=== PATIENT | female | born 1970 | race Caucasian/White ===

== ENCOUNTER → 2016-11-04 | Outpatient (CLI) | payer OTHER ==
[~2016-11-04] MED LIST: ASHW1CAP PO; BCPILLS PO; CLON1TAB3 PO; DOXY-300 PO; FLUT0.15 NAE; MELA1TAB9 PO; ONDA4TAB46 PO; SPIR50TA2 PO; THYR300T PO; THYR90TA PO
== END | disposition home or self-care (01) ==
LOC: C.LABBFT 11:24
PROVIDERS: ATTEND Internal Medicine Endocrinology, Diabetes & Metabolism
DX: E03.9 Hypothyroidism, unspecified (principal)

== ENCOUNTER → 2017-01-08 | Outpatient (CLI) | payer OTHER ==
[2017-01-08 17:47] LABS: THYROID STIMULATING HORMONE 1.19 uIu/ml (0.300-4.500)
== END | disposition home or self-care (01) ==
LOC: C.LABBFT 15:04
PROVIDERS: ATTEND Internal Medicine Endocrinology, Diabetes & Metabolism
DX: E03.9 Hypothyroidism, unspecified (principal)

== ENCOUNTER 2017-04-20 09:36 | Emergency (ER) | payer OTHER ==
[~2017-04-20 09:36] MED LIST changes: -ASHW1CAP PO; -DOXY-300 PO; -MELA1TAB9 PO; -ONDA4TAB46 PO; -SPIR50TA2 PO; -THYR300T PO
[2017-04-20 09:44] VITALS: TEMP 36.5; Ht 162.6 cm
[2017-04-20] MEDS ORDERED: ONDANSETRON INJ 2 MG/ML 2 ML VIAL IV STA (10:06)
[2017-04-20] MEDS ORDERED: MECLIZINE HCL 25 MG TAB PO STA (10:06)
[2017-04-20] MEDS ORDERED: SODIUM CHLORIDE 0.9% 1000ML 1,000 ML IV ONE ×2 (10:15→11:45)
[2017-04-20 10:40] LABS: BASO % 0.3 %; BASO ABS # 0.02 K/uL (0-0.2); COMPLETE YES; EOS % 0.1 %; HEMATOCRIT 38.1 % (37-47); IG% 0.1 %; LYMPH % 9.9 %; LYMPH ABS # 0.72 K/uL (1.2-3.4); MEAN CELL VOLUME 88.8 fL (80-100); MEAN CORPUSCULAR HEMOGLOBIN 30.8 pg (25-34); MEAN CORPUSCULAR HGB CONC 34.6 g/dl (32-36); MEAN PLATELET VOLUME 10.2 fL (7.4-10.4); MONO % 3.6 %; PLATELET COUNT 239 K/uL (130-400); RED BLOOD COUNT 4.29 M/uL (4.2-5.4); WHITE BLOOD COUNT 7.27 K/uL (4.8-10.8)
[2017-04-20] MEDS ORDERED: ASHW1CAP PO (10:53)
[2017-04-20] MEDS ORDERED: MELA1TAB9 PO (10:53)
[2017-04-20] MEDS ORDERED: THYR300T PO (10:53)
[2017-04-20] MEDS ORDERED: DOXY-300 PO (10:53)
[2017-04-20] MEDS ORDERED: SPIR50TA2 PO (10:53)
[2017-04-20 10:55] LABS: ALT/SGPT 17 U/L (12-78); AST/SGOT 10 U/L (15-37); BLOOD UREA NITROGEN 13 mg/dl (7-18); BUN/CREATININE RATIO 22.9 (10-20); CALCIUM 8.4 mg/dl (8.5-10.1); CARBON DIOXIDE 26 mmol/L (21-32); CHLORIDE 108 mmol/L (98-107); CREATININE 0.55 mg/dl (0.60-1.20); GLUCOSE 114 mg/dl (70-99); POTASSIUM 3.9 mmol/L (3.5-5.1); SODIUM 138 mmol/L (136-145)
[2017-04-20 10:58] LABS: ALKALINE PHOSPHATASE 61 U/L (45-117)
[2017-04-20 13:37] LABS: URINE APPEARANCE CLEAR (CLEAR); URINE BILIRUBIN NEG (NEG); URINE COLOR YELLOW; URINE NITRITE NEG (NEG); URINE PH 8.5 (4.5-7.5); URINE SPECIFIC GRAVITY 1.011 (1.000-1.030); UROBILINOGEN NEG (NEG)
[2017-04-20 13:41] LABS: MANUAL MICROSCOPIC REQUIRED? NO; REVIEW REQ? NO
[2017-04-20] MEDS ORDERED: RANITIDINE HCL 50 MG/100 ML D5W IV STA (14:11)
[2017-04-20 14:41] LABS: MAGNESIUM 1.8 mg/dl (1.8-2.4); PHOSPHORUS 1.7 mg/dl (2.5-4.9)
[2017-04-20] MEDS ORDERED: POTASSIUM PHOSPHATE INJ 15 MMOL in SODIUM CHLORIDE 0.9% 250ML 250 ML IV ONE (15:00)
[2017-04-20] MEDS ORDERED: MAGNESIUM SULFATE 1GM / D5W 1 GM IV ONE (15:00)
[2017-04-20] MEDS ORDERED: ONDA4TAB46 PO (17:23)
[2017-04-20] MEDS ORDERED: ONDANSETRON HOME PACK 4MG OD TAB PO ONE (17:30)
[2017-04-20 19:02] VITALS: BP 115/72; PULSE 88; O2SAT 98
--- NOTE | 2017-04-21 00:34 | Medical Consult ---
Consultation Date of Consultation: Apr 21, 2017. Attending Physician: Lindy Daniels, DO Reason for Consultation: dizziness and low phos; ?admit to hospital History of Present Illness 46 yo F with a long history of orthostatic hypotension and vertigo presents to the ER after waking up from sleep the night before feeling dizzy. She states she had a hard time moving and changing position without feeling nautious and ultimately dry heaved continuously. She reports feeling totally fine the day before. She denies fevers, chills or headaches. She has a h/o migraine headaches but hasn't had these in years. She denies visual changes, facial droop, slurred speech, difficulty moving arms/legs. She did have some trouble balancing because of the dizziness, and was measured to have orthostatic hypotension on vitals. She received two units of IVF and felt better with subsequent resolution of her symptoms and resolution of orthostasis. She reports the positional low BP in the past and denies passing out. She states that she has a family history of "dizziness." She is low risk for stroke-- nonsmoker, active, young. She denies diarrhea, joint or muscles aches or any other symptoms at this time. She was foudn to have a low phos at 1.7 and IV replacement was given. She is also using black pepper extract as an OTC medication and uses 120mg daily of [place] thyroid. Past Medical/Surgical History Medical Problems: (1) Acne Status: Chronic (2) Anxiety Status: Chronic (3) Anxiety State Nos Status: Chronic (4) H/O vertigo Status: Chronic (5) Head Injury, Nos Status: Resolved (6) Hypothyroid Status: Chronic (7) Hypothyroidism Nos Status: Chronic (8) Insomnia, Unspecified Status: Chronic Family History FH: leukemia MOTHER ( at 55 yo) Social History Smoking Status: Never Smoker Smokeless Tobacco Use: No Marital Status: Housing Status: lives with family Occupation Status: employed Allergies Coded Allergies: No Known Allergies (Unverified , 04/21/15) Home Medications Active Zofran (Ondansetron HCl) 4 Mg Tab 4 Mg PO Q6H PRN Reported Melatonin (Melatonin-Pyridoxine) 1 Tab Tab 1 Tab PO HS Ashwagandha (Ashwagandha (Withana Somnfera)) Unknown Strength Cap 1,300 Mg PO DAILY FOR THYROID SUPPORT Aldactone (Spironolactone) 50 Mg Tab 50 Mg PO DAILY Gwen Thyroid (Thyroid) 120 Mg Tab 120 Mg PO DAILY Doxycycline (Doxycycline (Monohydrate)) 100 Mg Cap 100 Mg PO BID Tretinoin 0.025% qHS [id number] PO qHS melatonin 10mg PO qHS Ibuprofen PRN Meclizine PRN Review of Systems At least ten systems were reviewed and negative except as indicated in HPI Physical Exam Date Time Temp Pulse Resp B/P (MAP) Pulse Ox O2 Delivery O2 Flow Rate FiO2 04/20/17 19:02 88 16 115/72 98 04/20/17 17:06 98 18 94/64 98 Room Air 04/20/17 16:56 94 16 121/72 98 Room Air 98 92/66 88 109/78 04/20/17 15:02 96 04/20/17 14:44 88 16 93/51 04/20/17 14:01 99 99/53 113 109/77 113 106/71 04/20/17 13:05 94 16 114/77 100 Room Air 04/20/17 12:38 92 16 109/75 99 Room Air 04/20/17 11:21 81 16 114/77 100 Room Air 04/20/17 11:21 81 16 79/48 98 Room Air 87 114/77 97 59/46 04/20/17 09:44 36.5 88 18 109/74 97 Room Air GEN: WNWD, in no acute distress, alert and appropriate, ambulatory HEENT: NC/AT, PERRL, normal sclerae, MMM, pharynx nonacute, TM pearly without effusion or erythema NECK: no LAD, trachea midline CARDIO: reg rate, S1/2 heard without m/g/r LUNGS: CTA bilaterally, no crackles, rales or wheezes, good diaphragmatic excursion ABD: soft, non-tender, non-distended, no rebound or guarding, +BS EXTREMITY: RP and DP palpable 2+ bilat, no LE swelling or edema, extremities are warm and well-perfused NEURO: CN 2-12 intact, sensation intact throughout, coordination intact (finger to nose, Hakeem, heel to pham while standing), (reflexes) BR 2/4 bilat, knee 2/4 bilat, Romberg negative. MUSC: 5/5 strength throughout, no focal deficits SKIN: warm and dry Laboratory Results 04/20/17 10:20 Red Blood Count 4.29, Mean Corpuscular Volume 88.8, Mean Corpuscular Hemoglobin 30.8, Mean Corpuscular Hemoglobin Concent 34.6, Mean Platelet Volume 10.2, Neutrophils (%) (Auto) 86.0, Lymphocytes (%) (Auto) 9.9, Monocytes (%) (Auto) 3.6, Eosinophils (%) (Auto) 0.1, Basophils (%) (Auto) 0.3, Neutrophils # (Auto) 6.25, Lymphocytes # (Auto) 0.72, Monocytes # (Auto) 0.26, Eosinophils # (Auto) 0.01, Basophils # (Auto) 0.02 04/20/17 10:20 Test 04/20/17 10:20 04/20/17 13:00 White Blood Count 7.27 K/uL (4.8-10.8) Red Blood Count 4.29 M/uL (4.2-5.4) Hemoglobin 13.2 g/dL (12.0-16.0) Hematocrit 38.1 % (37-47) Mean Corpuscular Volume 88.8 fL (80-100) Mean Corpuscular Hemoglobin 30.8 pg (25-34) Mean Corpuscular Hemoglobin Concent 34.6 g/dl (32-36) Platelet Count 239 K/uL (130-400) Mean Platelet Volume 10.2 fL (7.4-10.4) Neutrophils (%) (Auto) 86.0 % Lymphocytes (%) (Auto) 9.9 % Monocytes (%) (Auto) 3.6 % Eosinophils (%) (Auto) 0.1 % Basophils (%) (Auto) 0.3 % Neutrophils # (Auto) 6.25 K/uL (1.4-6.5) Lymphocytes # (Auto) 0.72 K/uL (1.2-3.4) Monocytes # (Auto) 0.26 K/uL (0.11-0.59) Eosinophils # (Auto) 0.01 K/uL (0-0.5) Basophils # (Auto) 0.02 K/uL (0-0.2) RDW Standard Deviation 38.7 fL (36.4-46.3) RDW Coefficient of Variation 12.0 % (11.5-14.5) Immature Granulocyte % (Auto) 0.1 % Immature Granulocyte # (Auto) 0.01 K/uL (0.00-0.02) Anion Gap 4.0 mmol/L (3-11) Estimated GFR () 131.3 Estimated GFR (Non- 113.3 BUN/Creatinine Ratio 22.9 (10-20) Calcium Level 8.4 mg/dl (8.5-10.1) Phosphorus Level 1.7 mg/dl (2.5-4.9) Magnesium Level 1.8 mg/dl (1.8-2.4) Total Bilirubin 1.0 mg/dl (0.2-1) Direct Bilirubin 0.1 mg/dl (0-0.2) Aspartate Amino Transf (AST/SGOT) 10 U/L (15-37) Alanine Aminotransferase (ALT/SGPT) 17 U/L (12-78) Alkaline Phosphatase 61 U/L (45-117) Troponin I < 0.015 ng/ml (0-0.045) Total Protein 7.0 gm/dl (6.4-8.2) Albumin 3.5 gm/dl (3.4-5.0) Urine Color YELLOW Urine Appearance CLEAR (CLEAR) Urine pH 8.5 (4.5-7.5) Urine Specific [place] 1.011 (1.000-1.030) Urine Protein NEG (NEG) Urine Glucose (UA) NEG (NEG) Urine Ketones NEG (NEG) Urine Occult Blood NEG (NEG) Urine Nitrite NEG (NEG) Urine Bilirubin NEG (NEG) Urine Urobilinogen NEG (NEG) Urine Leukocyte Esterase NEG (NEG) Urine Test NEG (NEG) Last 24 Hours Test 04/20/17 10:20 04/20/17 13:00 White Blood Count 7.27 K/uL Red Blood Count 4.29 M/uL Hemoglobin 13.2 g/dL Hematocrit 38.1 % Mean Corpuscular Volume 88.8 fL Mean Corpuscular Hemoglobin 30.8 pg Mean Corpuscular Hemoglobin Concent 34.6 g/dl Platelet Count 239 K/uL Mean Platelet Volume 10.2 fL Neutrophils (%) (Auto) 86.0 % Lymphocytes (%) (Auto) 9.9 % Monocytes (%) (Auto) 3.6 % Eosinophils (%) (Auto) 0.1 % Basophils (%) (Auto) 0.3 % Neutrophils # (Auto) 6.25 K/uL Lymphocytes # (Auto) 0.72 K/uL Monocytes # (Auto) 0.26 K/uL Eosinophils # (Auto) 0.01 K/uL Basophils # (Auto) 0.02 K/uL RDW Standard Deviation 38.7 fL RDW Coefficient of Variation 12.0 % Immature Granulocyte % (Auto) 0.1 % Immature Granulocyte # (Auto) 0.01 K/uL Sodium Level 138 mmol/L Potassium Level 3.9 mmol/L Chloride Level 108 mmol/L Carbon Dioxide Level 26 mmol/L Anion Gap 4.0 mmol/L Blood Urea Nitrogen 13 mg/dl Creatinine 0.55 mg/dl Estimated GFR () 131.3 Estimated GFR (Non- 113.3 BUN/Creatinine Ratio 22.9 Random Glucose 114 mg/dl Calcium Level 8.4 mg/dl Phosphorus Level 1.7 mg/dl Magnesium Level 1.8 mg/dl Total Bilirubin 1.0 mg/dl Direct Bilirubin 0.1 mg/dl Aspartate Amino Transf (AST/SGOT) 10 U/L Alanine Aminotransferase (ALT/SGPT) 17 U/L Alkaline Phosphatase 61 U/L Troponin I < 0.015 ng/ml Total Protein 7.0 gm/dl Albumin 3.5 gm/dl Urine Color YELLOW Urine Appearance CLEAR Urine pH 8.5 Urine Specific [place] 1.011 Urine Protein NEG Urine Glucose (UA) NEG Urine Ketones NEG Urine Occult Blood NEG Urine Nitrite NEG Urine Bilirubin NEG Urine Urobilinogen NEG Urine Leukocyte Esterase NEG Urine Test NEG Assessment & Plan 46 yo F presents with acute vertigo in the setting of orthostatic hypotension with symptoms and orthostattic hypotension resolving after IVF given in the ER. Stroke is low risk and as this has been chronic, her symptoms have resolved, and she has no neuro deficits or nystagmus on exam this was considered a low possibility. Her phos was replaced IV but otherwise her electrolytes were found to be within normal limits. She was sent home with antiemetics as needed and close follow-u with her PCP for of next week. We had a long conversation about what she wanted to do. We extensively weighed out the pros and cons of being admitted or not. I gave her the choice and ultimately she decided on her own that she would like to go home and she would be fine there. She was discharged from the ER in stable condition with recommendations to further investigate this recurring orthostatic hypotension as an outpatient. Lnidy Daniels DO [facility] Additional Copies To Tylor Velázquez M.D.
--- NOTE | 2017-04-21 16:50 | EMERGENCY ROOM VISIT NOTE ---
ED Visit Note First contact with patient: 09:47 Chief Complaint: I'm having dizziness and dry heaving. History of Present Illness: Ms. Dumont is a 46-year-old white female who is brought into the ED via wheelchair complaining of dizziness and nausea. Historically patient reports she had a history that was diagnosed as vertigo couple years ago. She reports she was on antivertigo medicine and her symptoms resolve and no cause for her vertigo was identified. Patient reports approximately 3 hours ago she was awoken from sleep with an acute onset of diaphoresis and when she stood up out of bed she was having dizziness with room spinning sensations. She then became nauseated and went to the bathroom to vomit. When she got in the bathroom she was having dry heaving and worsening dizziness and lied on the floor; she denies peg syncope. Currently she is complaining of dizziness; sensations of room spinning, and nausea. Her symptoms worsen with head movement to the left. She has not identified any alleviating factors related to her symptoms. She has not taken any medications for her symptoms prior to arrival at the hospital. She denies any recent head trauma, visual changes, hearing changes, difficult speaking, difficulty swallowing, difficulty ambulating/coronary body movements, upper respiratory tract symptoms, cough, wheezing, shortness of breath, chest pain, palpitations, neck/back pain, abdominal pain, recent rectal bleeding, black/ tarry stools, urinary symptoms, hematuria, vaginal bleeding, vaginal discharge, extremity weakness/numbness/tingling, skin eruptions, skin color changes. Review of Systems: As noted above in history of present illness. All body systems were reviewed and found to be negative as noted above. Past Medical History: As previously noted, bronchitis, pneumonia, hypothyroidism , status post tonsillectomy. Current Medications: Doxycycline, Aldactone, melatonin, thyroid, Ashwagandha. Allergies to Medications: Patient denies. Social History: Patient is currently employed; she feels safe in her home environment; she denies tobacco use and admits to alcohol use. Physical Examination: Vital Signs: Date Time Temp Pulse Resp B/P (MAP) Pulse Ox O2 Delivery O2 Flow Rate FiO2 04/20/17 19:02 88 16 115/72 98 04/20/17 17:06 98 18 94/64 98 Room Air 04/20/17 16:56 94 16 121/72 98 Room Air 98 92/66 88 109/78 04/20/17 15:02 96 04/20/17 14:44 88 16 93/51 04/20/17 14:01 99 99/53 113 109/77 113 106/71 04/20/17 13:05 94 16 114/77 100 Room Air 04/20/17 12:38 92 16 109/75 99 Room Air 04/20/17 11:21 81 16 114/77 100 Room Air 04/20/17 11:21 81 16 79/48 98 Room Air 87 114/77 97 59/46 04/20/17 09:44 36.5 88 18 109/74 97 Room Air GENERAL: 46-year-old female in moderate distress due to symptoms, nontoxic- appearing, afebrile and hemodynamically stable. NEUROLOGICAL: Awake, alert and oriented to person, place and time. Answering questions appropriately and following commands. Normal gait. Good hand eye coordination. Cranial nerves II through XII grossly intact. Good short-term and long-term recall. HEENT: Atraumatic and normocephalic. External ears are nontender. Auditory canals are pink and patent. Tympanic membranes are normal with normal light reflex; no erythema or bulging. PERRLA. EOMI without nystagmus. Sclera white and conjunctiva pink. No drainage from naris. Oral cavity moist and pink. Pharynx is nonerythematous or edematous. Speech normal. No lymphadenopathy. Trachea midline. No jugular venous distention. BACK: No tenderness over the bony spine. No meningismus or nuchal rigidity. No CVA tenderness. THORAX: Lungs sounds are clear to auscultation and equal bilaterally with symmetrical chest wall. No wheezing, rales or rhonchi. No crepitus, tenderness , subcutaneous air or deformities noted. HEART: Regular rate and rhythm. No gallops, rubs or murmurs are appreciated. ABDOMEN: Flat, soft and nontender. Positive bowel sounds in all quadrants. No guarding, rigidity or organomegaly. EXTREMITIES: Moves all extremities well on command and with purpose. All distal neurovascular statuses are intact and equal bilaterally. No calf tenderness or cords. ED Course: Patient is assessed as noted above. Patient's medication list was reviewed. Laboratory Testing: Test 04/20/17 10:20 04/20/17 13:00 Range/Units White Blood Count 7.27 4.8-10.8 K/uL Red Blood Count 4.29 4.2-5.4 M/uL Hemoglobin 13.2 12.0-16.0 g/dL Hematocrit 38.1 37-47 % Mean Corpuscular Volume 88.8 80-100 fL Mean Corpuscular Hemoglobin 30.8 25-34 pg Mean Corpuscular Hemoglobin Concent 34.6 32-36 g/dl Platelet Count 239 130-400 K/uL Mean Platelet Volume 10.2 7.4-10.4 fL Neutrophils (%) (Auto) 86.0 % Lymphocytes (%) (Auto) 9.9 % Monocytes (%) (Auto) 3.6 % Eosinophils (%) (Auto) 0.1 % Basophils (%) (Auto) 0.3 % Neutrophils # (Auto) 6.25 1.4-6.5 K/uL Lymphocytes # (Auto) 0.72 1.2-3.4 K/uL Monocytes # (Auto) 0.26 0.11-0.59 K/uL Eosinophils # (Auto) 0.01 0-0.5 K/uL Basophils # (Auto) 0.02 0-0.2 K/uL RDW Standard Deviation 38.7 36.4-46.3 fL RDW Coefficient of Variation 12.0 11.5-14.5 % Immature Granulocyte % (Auto) 0.1 % Immature Granulocyte # (Auto) 0.01 0.00-0.02 K/uL Sodium Level 138 136-145 mmol/L Potassium Level 3.9 3.5-5.1 mmol/L Chloride Level 108 98-107 mmol/L Carbon Dioxide Level 26 21-32 mmol/L Anion Gap 4.0 3-11 mmol/L Blood Urea Nitrogen 13 7-18 mg/dl Creatinine 0.55 0.60-1.20 mg/dl Estimated GFR () 131.3 Estimated GFR (Non- 113.3 BUN/Creatinine Ratio 22.9 10-20 Random Glucose 114 70-99 mg/dl Calcium Level 8.4 8.5-10.1 mg/dl Phosphorus Level 1.7 2.5-4.9 mg/dl Magnesium Level 1.8 1.8-2.4 mg/dl Total Bilirubin 1.0 0.2-1 mg/dl Direct Bilirubin 0.1 0-0.2 mg/dl Aspartate Amino Transf (AST/SGOT) 10 15-37 U/L Alanine Aminotransferase (ALT/SGPT) 17 12-78 U/L Alkaline Phosphatase 61 45-117 U/L Troponin I < 0.015 0-0.045 ng/ml Total Protein 7.0 6.4-8.2 gm/dl Albumin 3.5 3.4-5.0 gm/dl Urine Color YELLOW Urine Appearance CLEAR CLEAR Urine pH 8.5 4.5-7.5 Urine Specific [place] 1.011 1.000-1.030 Urine Protein NEG NEG Urine Glucose (UA) NEG NEG Urine Ketones NEG NEG Urine Occult Blood NEG NEG Urine Nitrite NEG NEG Urine Bilirubin NEG NEG Urine Urobilinogen NEG NEG Urine Leukocyte Esterase NEG NEG Urine Test NEG NEG EKG: Was read by myself and reviewed with Dr. Ayala; shows normal sinus rhythm with a ventricular rate of 92 bpm. Prolonged QT segment measuring [address] changes indicating ischemia, injury or infarction. Normal axis. Medical records were reviewed and no previous EKGs were found. Patient was hydrated with 2 L of normal saline and initially received 4 mg of Zofran IV for nausea. After resolution of her nausea she received 50 mg of Antivert by mouth. Patient was reassessed multiple times during her stay in the emergency department. When her phosphate and magnesium level came down and decreased she was given 1 g of magnesium sulfate and 15 mmol of potassium phosphate IV. Patient's case was reviewed with Dr. Ayala; we agreed on diagnostic approach , treatment, disposition and plan. Because of patient's presentation and her diagnostic findings I did consult the hospitalist, Dr. Allen for medical observation/admission. After she said assessed the patient she did not feel a hospital observation or admission stay would be necessary and that she could follow-up with her primary care provider. She requested that I prescribe the patient and antinausea medication and have the patient contact her PCP for follow-up care. Patient was educated about today's findings and instructed on her treatment plan ; she verbalized understanding and agreement with this plan. Clinical Impression: Dizziness. Orthostatic hypotension, resolved. QT segment elongation. Hypophosphatemia. Decision-Making: Initially my differential diagnosis I considered benign vertigo , CVA, sepsis, electrolyte abnormalities, dysrhythmia and other causes.. Disposition: Patient discharged home in stable condition accompanied by her ; prior to departure she was reassessed and subjectively reported she was feeling much better. Plan: Patient was encouraged to follow-up with family physician on April 27 at 3:45 pm Patient is encouraged to continue her current medications as prescribed. Patient was prescribed Zofran 4 mg every 6 hours as needed for nausea/vomiting. Patient was encouraged to stay well-hydrated with increased clear fluids and to avoid alcohol use. Patient was encouraged return ED for worsening symptoms, fevers, any episodes of syncope, chest pain, shortness of breath or any new/concerning symptoms.
== END 2017-04-20 19:02 | disposition home or self-care (01) ==
LOC: C.EDB 09:38 → C.EDA 19:02
DX: R42 Dizziness and giddiness (principal); I95.1 Orthostatic hypotension; E83.31 Familial hypophosphatemia; R11.0 Nausea; E03.9 Hypothyroidism, unspecified; Z79.899 Other long term (current) drug therapy